=== PATIENT | female | born 2000 | race Caucasian/White ===

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

== ENCOUNTER 2023-01-11 08:03 | Emergency (ER) | payer BC, MEDICAID ==
[~2023-01-11] VITALS: Ht 168 cm; Wt 75.0 kg
[~2023-01-11 08:03] MED LIST changes: +CYCL10TA25 PO; -CYCL10TA9 PO; +OMEP20TA56 PO; -OMEP20TA7 PO
[2023-01-11] MEDS ORDERED: KETOROLAC 30 MG/ML VIAL IVP STA (08:38)
[2023-01-11] MEDS ORDERED: diphenhydrAMINE 50 MG/ML INJ (BENADRYL) IV STA (08:38)
[2023-01-11] MEDS ORDERED: PROMETHAZINE INJ 25 MG/ML (PHENERGAN) AMP IVP STA (08:38)
[2023-01-11] MEDS ORDERED: NS IV 1000 ML 1,000 ML IV STA (08:38)
--- NOTE | 2023-01-11 08:39 | ED Headache ---
General Chief Complaint: Head/Cervical Problems Stated Complaint: MIGRAINE Nursing Triage Note: Patient ambulatory to room 6 w c/o migraine that started on Monday. patient states her normal med regimen (excedrin migraine, ibuprofen, CBD) isn't working. Patient vomited twice on Monday and once monday morning. hx of migraines. Source: patient Exam Limitations: no limitations History of Present Illness Date Seen by Provider: Jan 11, 2023 Time Seen by Provider: 08:25 Initial Comments Here with complaint of migraine that has lasted since Monday. Usually she is able to get it to break with ibuprofen and Excedrin CBD oil but that has not helped this time. States its typical pattern she does have some nausea and intermittent vomiting. She has not had any medicine since last night. Patient did drive here. She states that she is able to get a ride. Denies fever, chills, sore throat, runny nose, cough or other infective symptoms. Timing/Duration: waxing and waning, other (3 to 4 days) Severity/Quality: pressure Location: frontal Prior Headaches/Recent Trauma: occasional headaches Associated Symptoms: No confusion, No fever/chills, No nasal congestion, No nasal drainage, No sinus infection, No stiff neck, No vision changes, No weakness Allergies and Home Medications Allergies Coded Allergies: linezolid (Verified Allergy, Severe, RASH, 09/11/20) Patient Home Medication List Home Medication List Reviewed: Yes Hydrocodone/Acetaminophen (Hydrocodone/Acetaminophen 5 MG/325 MG TAB) 1 Each Tablet, 1 TAB PO Q6H Prescribed by: TANYA TRINIDAD on 09/16/20 1247 Review of Systems Review of Systems Constitutional: see HPI; No chills, No fever Eyes: See HPI Ears, Nose, Mouth, Throat: see HPI Respiratory: No cough, No short of breath Cardiovascular: no symptoms reported Gastrointestinal: nausea, vomiting Genitourinary: no symptoms reported Psychiatric/Neurological: See HPI Past Zlmsbcc-Oftsag-Aadusx Hx Patient Social History Tobacco Use?: Yes Use of E-Cig and/or Vaping dev: Yes E-Cig or Vaping type used: Nicotine Use of E-Cig and/or Vaping Ed: Current Everyday User Substance use?: No Alcohol Use?: Yes Alcohol Frequency: Once in a while Immunizations Up To Date Tetanus Booster (TDap): Unknown PED Vaccines UTD: Yes Seasonal Allergies Seasonal Allergies: No Past Medical History Surgeries: Yes Gallbladder, Tonsillectomy Respiratory: No Currently Using CPAP: No Currently Using BIPAP: No Cardiac: No Neurological: No Headaches /Migraines Reproductive Disorders: No Female Reproductive Disorders: Denies Sexually Transmitted Disease: No HIV/AIDS: No Genitourinary: No Bladder Infection Gastrointestinal: No Gastroesophageal Reflux, Esophagitis, Hiatal Hernia, Gall Bladder Disease Musculoskeletal: No Endocrine: No HEENT: No Tonsilitis Loss of Vision: Denies Hearing Impairment: Denies Cancer: No Psychosocial: No Anxiety, Suicide Attempts, Depression Integumentary: Yes (HX OF MRSA) Blood Disorders: No Adverse Reaction/Blood Tranf: No (N/A) Family Medical History Reviewed Nursing Family Hx No Pertinent Family Hx, Asthma, Hypertension Physical Exam Vital Signs Vital Signs - First Documented 01/11/23 08:15 Temp 36.3 Pulse 71 Resp 16 B/P (MAP) 122/93 (103) Pulse Ox 98 O2 Delivery Room Air Capillary Refill : Less Than 3 Seconds Height, Weight, BMI Height: 5'7.00" Weight: 116lbs. 0.0oz. 52.204876ae; 26.00 BMI Method:Stated General Appearance: WD/WN, no apparent distress HEENT: PERRL/EOMI, pharynx normal Neck: full range of motion, supple Cardiovascular: regular rate, rhythm, no murmur Respiratory: lungs clear, normal breath sounds Gastrointestinal: non tender, soft Psychiatric: alert, oriented x 3 Cra[place] Nerves: normal hearing, normal speech, PERRL Motor/Sensory: no motor deficit, no sensory deficit Skin: normal color, warm/dry Progress/Results/Core Measures Results/Orders My Orders Orders - AAYUSH MICHAEL MD Promethazine Injection (Phenergan Injec (01/11/23 08:38) Ns Iv 1000 Ml (Sodium Chloride 0.9%) (01/11/23 08:38) Ed Iv/Invasive Line Start (01/11/23 08:38) Diphenhydramine Injection (Benadryl Inje (01/11/23 08:38) Ketorolac Injection (Toradol Injection) (01/11/23 08:38) Vital Signs/I&O 01/11/23 08:15 Temp 36.3 Pulse 71 Resp 16 B/P (MAP) 122/93 (103) Pulse Ox 98 O2 Delivery Room Air Blood Pressure Mean: 103 Progress Progress Note : Progress Note Seen and evaluated. IV, normal saline 1 L bolus, Toradol 30 mg IV, Phenergan 25 mg IV, Benadryl 25 mg IV. Monitor patient. Differential includes migraine headache and other headache etiology. Appears to be acute migraine headache syndrome. 0941: Patient is doing much better and pain now 2 out of 10 and she feels co mfortable going home and resting. Her mother will pick her up. I will give her a work note for today. Discharged home with return precautions. Patient verbalized understanding instructions and agreement with plan. Departure Impression Primary Impression: Migraine Qualified Codes: G43.909 - Migraine, unspecified, not intractable, without status migrainosus Disposition: HOME, SELF-CARE Condition: Improved Departure-Patient Inst. Decision time for Depature: 09:42 Referrals: MILES MATMAOROS MD (PCP/Family) Primary Care Physician Patient Instructions: Migraines (DC) Add. Discharge Instructions: All discharge instructions reviewed with patient and/or family. Voiced understanding. Go home and rest today. Drink plenty of fluids. You may continue your normal medication and as needed medication for your migraines. Follow-up with your doctor in a few days for recheck. Return for worse pain, fever, vomiting, vision or balance problems, weakness, difficulty talking or walking or other concerns as needed. AAYUSH MICHAEL MD Jan 11, 2023 08:39
[2023-01-11 10:02] VITALS: BP 119/75
== END 2023-01-11 10:02 | disposition home or self-care (01) ==
LOC: EDUNIT# 08:03 → ER 08:05
DX: G43.909 Migraine, unspecified, not intractable, without status migrainosus (principal); F17.290 Nicotine dependence, other tobacco product, uncomplicated; Z28.310 Unvaccinated for COVID-19
CPT/HCPCS: 99281